=== PATIENT | female | born 1990 | race Caucasian/White ===

== ENCOUNTER 2022-08-25 15:16 | Emergency (ER) | payer BC ==
[2022-08-25 16:07] LABS: #Basophils 0.1 10x3/uL (0.0-0.2); #Eosinphils 0.1 10x3/uL (0.0-0.5); #Monocytes 0.4 10x3/uL (0.0-1.1); #Neutrophils 3.9 10x3/uL (1.5-8.4); %Eosinophils 1.7 % (0.0-6.0); %Lymphocytes 38.3 % (18.0-47.0); %Monocytes 5.6 % (0.0-10.0); %Neutrophils 53.1 % (40.0-75.0); Hemoglobin 14.1 g/dL (12.0-15.5); Mean Corpuscular HGB CONC 33.4 g/dL (32.0-36.0); Mean Corpuscular Hemoglobin 29.7 pg (27.0-33.0); Mean Platelet Volume 8.3 fl (7.4-10.4); Platelet Count 333 10x3/uL (150-450); RBC Distribution Width 11.3 % (11.5-14.5); Red Blood Cell (RBC) Count 4.74 10x6/uL (3.90-5.03); White Blood Cell (WBC) Count 7.3 10x3/uL (3.5-10.5)
[2022-08-25 16:36] LABS: ALT (SGPT) 18 U/L (8-55); AST (SGOT) 17 U/L (5-34); Albumin 4.5 g/dL (3.5-5.0); Alkaline Phosphatase 87 U/L (40-110); Anion Gap 10 mmol/L (10-20); BUN (Urea Nitrogen) 10 mg/dL (7.0-18.7); Bilirubin, Total 0.3 mg/dL (0.2-1.2); Calc. Creatinine Clearance 0 mL/min (70-130); Calcium 9.1 mg/dL (7.8-10.44); Carbon Dioxide 26 mmol/L (22-29); Chloride 106 mmol/L (98-107); Estimated GFR 98; Globulin 2.8 g/dL (2.4-3.5); Glucose 114 mg/dL (70-105); Potassium 4.1 mmol/L (3.5-5.1); Protein, Total 7.3 g/dL (6.0-8.3); Sodium 138 mmol/L (136-145)
[2022-08-25 17:29] LABS: BHCG - Serum Negative (NEGATIVE); Pregs Control Background? CLEAR/WHITE (CLR/WHITE); Pregs Control Bar Appear? YES (CONTROL BAR)
[2022-08-25 17:32] LABS: Magnesium 1.8 mg/dL (1.6-2.6)
== END 2022-08-25 18:25 | disposition home or self-care (01) ==
LOC: CSHERS 15:16
DX: R20.2 Paresthesia of skin (principal)
CPT/HCPCS: 70450; 80053; 83735; 84484; 84703; 85025; 93005